=== PATIENT | male | born 1935 | race Caucasian/White ===

== ENCOUNTER 2019-05-03 09:19 | Inpatient (IN) | payer OTHER ==
[2019-04-25 14:22] VITALS: BMI 28.1
--- NOTE | 2019-05-03 08:05 | HP ---
Satellite [facility] - Chief Complaint Chief Complaint: right knee pain - Past Medical History Allergies/Adverse Reactions: Allergies Allergy/AdvReac Type Severity Reaction Status Date / Time No Known Allergies Allergy Verified 04/25/19 13:47 - Current Medications Current Medications: Home Medications Medication Instructions Recorded Amlodipine Besylate 10 mg PO DAILY 04/25/19 Aspirin [ASA -] 81 mg PO DAILY 04/25/19 Atorvastatin Ca [Lipitor] 20 mg PO HS 04/25/19 Clopidogrel Bisulfate [Clopidogrel] 75 mg PO DAILY 04/25/19 Levocetirizine Dihydrochloride 5 mg PO DAILY 04/25/19 [Xyzal] Metoprolol Succinate [Toprol Xl] 25 mg PO DAILY 04/25/19 Multivitamins [Tab-A-Vit -] 1 tab PO DAILY 04/25/19 Tamsulosin HCl 0.4 mg PO HS 04/25/19 Satellite Physical Exam - Physical Examination General Appearance: Well Nourished, Well Developed, Alert & Oriented x3, Severe Distress Lung: Normal air movement Extremities: Other (right knee- + swelling, + ttp, decr rom, nvi, xrays show grade 4 tricompartmental djd) Neurological: Intact, Alert, Oriented Satellite Impression/Plan - Impression/Plan Impression: right knee djd Operative Procedure: right edwin tkr Date to be Performed: 05/03/19
[2019-05-03] MEDS ORDERED: MIDAZOLAM HCL 2 MG/2 ML SINGLE DOSE VIAL ONE ×2 (09:42→10:35)
[2019-05-03] MEDS ORDERED: BUPIVACAINE LIPOSOME/PF (EXPAREL) 266 MG/20 ML VIAL ONE (09:42)
[2019-05-03] MEDS ORDERED: SODIUM CHLORIDE 0.9% P/F 10 ML VIAL IJ ONE ×2 (09:42→11:42)
[2019-05-03] MEDS ORDERED: CELECOXIB 200 MG CAPSULE PO ONE (09:43)
[2019-05-03] MEDS ORDERED: CEFAZOLIN 3 GM in DEXTROSE 5%-WATER - 100 ML IVPB ONE (09:43)
[2019-05-03] MEDS ORDERED: TRANEXAMIC ACID 1000 MG/10 ML VIAL IVPUSH ONE (09:43)
[2019-05-03] MEDS ORDERED: ceFAZolin SODIUM 1 GM VIAL ONE ×2 (10:47→11:42)
[2019-05-03] MEDS ORDERED: VANCOMYCIN 1,000 MG VIAL (RESTRICTED TO ID ONLY) ONE (10:47)
[2019-05-03] MEDS ORDERED: ROCURONIUM BROMIDE 50 MG/5 ML SYRINGE ONE (11:04)
[2019-05-03] MEDS ORDERED: ONDANSETRON 4 MG/2 ML VIAL IVPUSH PRN (11:34)
[2019-05-03] MEDS ORDERED: MAG HYDROX/AL HYDROX/SIMETH 30 ML UNIT-DOSE CUP PO PRN (11:34)
[2019-05-03] MEDS ORDERED: MAGNESIUM HYDROX 2400MG/30ML ORAL SUSPENSION 30 ML CUP PO PRN (11:34)
[2019-05-03] MEDS ORDERED: LIDOCAINE HCL/PF 2% SDV 5ML VIAL ONE (11:42)
[2019-05-03] MEDS ORDERED: DEXAMETHASONE SOD PHOSPHATE 4 MG/1 ML VIAL ONE (11:42)
[2019-05-03] MEDS ORDERED: LACTATED RINGERS SOLUTION 1,000 ML IV SCH (11:45)
[2019-05-03] MEDS ORDERED: NEOSTIGMINE METHYLSULFATE 0.5 MG/ML - 10 ML MDV ONE (12:41)
[2019-05-03] MEDS ORDERED: VANCOMYCIN 1,000 MG VIAL (RESTRICTED TO ID ONLY) IVPB ONE (12:41)
[2019-05-03] MEDS ORDERED: GLYCOPYRROLATE 0.2 MG/1 ML VIAL ONE (12:56)
--- NOTE | 2019-05-03 13:20 | OP ---
Operative Note - Note: Operative Date: 05/03/19 (jenny) Pre-Operative Diagnosis: right knee djd Operation: right edwin tkr Post-Operative Diagnosis: Same as Pre-op Surgeon: Felix Matthews Print Support Specialist: Ag Crespo Anesthesia: General, Local Specimens Removed: bone fragments Estimated Blood Loss (mls): 200
[2019-05-03] MEDS ORDERED: ONDANSETRON 4 MG/2 ML VIAL ONE (14:06)
[2019-05-03] MEDS ORDERED: ACETAMINOPHEN 325 MG TABLET (FP) ONE (14:06)
--- NOTE | 2019-05-03 14:11 | SPEC ---
DATE OF OPERATION: 05/03/2019 PREOPERATIVE DIAGNOSIS: Degenerative joint disease, right knee. POSTOPERATIVE DIAGNOSIS: Degenerative joint disease, right knee. PROCEDURE: Right total knee replacement with robotic-assisted navigation (Makoplasty). SURGICAL ATTENDING: Felix Matthews M.D. NEWSPAPER WRITER: Cici Lozada ANESTHESIA: Regional and general. CLOSURE: A cemented Triathlon knee system with a 6 tibia, 11 polyethylene, 38 patella, number 1 Vicryl fascia, 0 and 2-0 subcutaneous, 3-0 Monocryl subcuticular with skin glue, 4-0 undyed Vicryl for pin sites. ESTIMATED BLOOD LOSS: Less than 100 mL. COMPLICATIONS: None. CONDITION: To recovery room in stable condition. DESCRIPTION OF OPERATIVE PROCEDURE: Patient was taken to the operating room on May 03, 2019. Regional and general anesthesia was administered by the anesthesiologist. IV Kefzol and TXA were administered by the anesthesiologist. Well-padded pneumatic tourniquet was placed on the proximal thigh. The right lower extremity was prepped and draped in the usual sterile fashion. The leg was exsanguinated with an Esmarch bandage and tourniquet was inflated to 275 mmHg. A 12 to 15-cm longitudinal midline incision was incised while centered over the patella. The dissection was carried down to the level of the extensor mechanism with sufficient flaps made to adequately perform the procedure. A medial parapatellar arthrotomy was then performed. We made a cuff of tissue on the patella for later closure. The patella was inverted, the knee was flexed up. The fat pad was excised. The subperiosteal dissection was on the anteromedial proximal tibia around towards the direction of the MCL. The ACL and the PCL were transected and debrided. The meniscal remnants of the medial and lateral meniscus were debrided and removed. This allowed the knee to be able to "be brought forward." The checkpoints were malleted into the tibia and into the femur. Two threaded pins were drilled anteroposteriorly proximal to the knee through the previous incision, through the anterior cortex, then just engaging the posterior cortex. To these pins was assembled the femoral navigation array. One handbreadth below the tibial tubercle, 2 stab incisions were used to drill 2 threaded pins in parallel fashion into the tibia, again through the anterior cortex and just engaging the posterior cortex. To these pins was fastened the tibial arrays. The knee was then registered with the navigation device with center of rotation of the hip, medial and lateral malleoli, both checkpoints, and multiple points on both the femur and the tibia to ensure excellent registration. The navigation device was directed off the "top of the bubbles" on both the femur and the tibia. The navigation passed within less than 0.5 mm to plan. The knee was then thoroughly inspected to remove all osteophytes both medially, laterally, and on the femur and the tibia, and whatever osteophytes were available for dissection. The knee was then taken to extension and to flexion, and stressed in both varus and valgus to assess flexion gaps. The virtual position of the components on the navigation device were then manipulated to optimize the position and to ensure equal gaps in both flexion and extension, and both medially and laterally. The robot was then brought into the field and was registered. The cuts were then made both on the femur and on the tibia as to plan. All osteophytes posteriorly were then removed as well. The gaps were then measured again in flexion and extension to be equal in both flexion and extension and medial and laterally. The femoral notch was then made, as we were doing a posterior stabilizing component, with the appropriate sized box. Trial reduction of the femur achieved excellent [id number] fit. A tibial baseplate of appropriate polyethylene thickness was "floated in the knee." It was ensured to be in the excellent position by navigation devices and was pinned in place. The knee was taken through a range of motion and found to have excellent stability throughout flexion and extension. The patella was calibrated for thickness and osteotomized down to the appropriate level. The appropriate lollipop was used to drill the lug holes in the patella and the trial button was applied. The knee was taken through a range of motion and found to have excellent tracking of the patella and patella from full extension to full flexion. Trial components were removed, the keel was punched and drilled, and a sclerotic bone on the tibia was drilled to help with cement interdigitation. The knee was thoroughly irrigated with the pulse antibiotic title examiner. The real components were then cemented in using monitored arrangement cement techniques with antibiotic cement and pressurization and extension. After the cement was hardened, the knee was thoroughly inspected to remove any extra cement. The real polyethylene component was then clipped into place. Range of motion, stability, and tracking were as described earlier. The checkpoints and the pins were removed. The knee was thoroughly irrigated with antibiotic irrigation. Vancomycin powder was placed into the knee for antibiotic prophylaxis. The medial parapatellar arthrotomy was then closed using number 1 Vicryl interrupted suture. After closure of the deep layer, the knee was taken through a range of motion and found to have excellent stability of the patella with no dislocation and no undue tension on the repair. The subcutaneous was pulse antibiotic irrigated and was then closed with 2-0 Vicryl, 3-0 Monocryl subcuticular with the skin glue for the skin. The distal tibial pin site was irrigated thoroughly as well and then closed with 4-0 undyed Vicryl. A sterile Aquacel dressing was applied, followed by a Mei dressing. Tourniquet was deflated. Total tourniquet time was approximately 75 minutes. No complications. Patient was awakened from anesthesia and transferred to recovery room in stable condition. Postoperative x-rays revealed excellent position of the components. [place] [id number]
[2019-05-03] MEDS ORDERED: traMADol HCL 50 MG TABLET PO PRN (14:18)
[2019-05-03] MEDS ORDERED: oxyCODONE HCL 5 MG TABLET PO PRN (14:18)
[2019-05-03] MEDS: ACETAMINOPHEN 325 MG TABLET (FP) PO SCH ×2 (14:29→19:59)
[2019-05-03] MEDS: oxyCODONE HCL 5 MG TABLET PO PRN (15:00)
[2019-05-03] MEDS: CEFAZOLIN 2 GM/D5W 2 GM/50 ML ML IVPB SCH (20:01)
[2019-05-03] MEDS: FAMOTIDINE 20 MG TABLET PO SCH (21:13)
[2019-05-03] MEDS: TAMSULOSIN HCL 0.4 MG CAP PO SCH (21:13)
[2019-05-03] MEDS: ATORVASTATIN CA 20 MG TABLET (FP) PO SCH (21:14)
[2019-05-03] MEDS: SENNOSIDES/DOCUSATE COMBO (SENNA PLUS) TABLET (UD) PO SCH (21:14)
[2019-05-04] MEDS: ACETAMINOPHEN 325 MG TABLET (FP) PO SCH ×4 (03:03→21:16)
[2019-05-04] MEDS: CEFAZOLIN 2 GM/D5W 2 GM/50 ML ML IVPB SCH (03:26)
[2019-05-04 07:44] LABS: HEMATOCRIT 33.9 % (35.4-49); HEMOGLOBIN 11.7 GM/dl (11.7-16.9); MCHC 34.5 g/dl (32.0-35.9); MEAN CELL VOLUME 89.7 fl (80-96); MEAN PLT VOLUME 7.9 fl (7.5-11.1); PLATELET COUNT 217 K/MM3 (134-434); RBC 3.78 M/mm3 (4.00-5.60); RDW 12.7 % (11.9-15.9); WHITE BLOOD COUNT 10.6 K/mm3 (4.0-10.8)
[2019-05-04] MEDS: CLOPIDOGREL BISULFATE 75 MG TABLET (FP) PO SCH (09:00)
--- NOTE | 2019-05-04 09:20 | PN ---
Progress Note (short form) - Note Progress Note: Ortho Pt seen and examined s/p right edwin tkr pod #1 Selected Entries 05/04/19 06:00 Temperature 99.1 F Pulse Rate 79 Respiratory 19 Rate Blood Pressure 176/57 H Laboratory Tests 05/04/19 07:10 WBC 10.6 Hgb 11.7 Hct 33.9 L Plt Count 217 dressing c/d/i, calf soft, nt rom 0-40, nvi a/p PT dvt ppx pain control d/c home tomorrow if stable
[2019-05-04] MEDS: FAMOTIDINE 20 MG TABLET PO SCH ×2 (09:30→21:16)
[2019-05-04] MEDS: LORATADINE 10 MG TABLET PO SCH (09:30)
[2019-05-04] MEDS: amLODIPine BESYLATE 10 MG TABLET (FP) PO SCH (09:30)
[2019-05-04] MEDS: metoPROLOL SUCCINATE 25 MG TAB.SR.24H (FP) PO SCH (09:30)
[2019-05-04] MEDS: MULTIVITAMINS (DAILY MVI) TABLET (FP) PO SCH (09:30)
[2019-05-04] MEDS: ASPIRIN 81 MG CHEWABLE TABLETS PO SCH (09:30)
[2019-05-04] MEDS: SENNOSIDES/DOCUSATE COMBO (SENNA PLUS) TABLET (UD) PO SCH ×2 (09:30→21:17)
[2019-05-04] MEDS ORDERED: MULTIVITAMINS (DAILY MVI) TABLET (FP) PO SCH (10:00)
[2019-05-04] MEDS ORDERED: LEVOCETIRIZINE DIHYDROCHLORIDE 5 MG PO SCH (10:00)
--- NOTE | 2019-05-04 10:16 | PN ---
Progress Note, Physician Chief Complaint: C/O WEAKNESS AND DIZZINESS S/P RIGHT TKR - Current Medication List Current Medications: Active Medications Acetaminophen (Tylenol -) 650 mg PO Q6H [facility] Stop: 05/06/19 14:29 Last Admin: 05/04/19 03:03 Dose: 650 mg Al Hydroxide/Mg Hydroxide (Mylanta Oral Suspension -) 30 ml PO Q4H PRN PRN Reason: DYSPEPSIA Amlodipine Besylate (Norvasc -) 10 mg PO DAILY [facility] Aspirin (Asa -) 81 mg PO DAILY [facility] Atorvastatin Calcium (Lipitor -) 20 mg PO HS [facility] Last Admin: 05/03/19 21:14 Dose: 20 mg Clopidogrel Bisulfate (Plavix -) 75 mg PO DAILY@0800 [facility] Famotidine (Pepcid -) 20 mg PO BID [facility] Last Admin: 05/03/19 21:13 Dose: 20 mg Loratadine (Claritin -) 10 mg PO DAILY [facility] Magnesium Hydroxide (Milk Of Magnesia -) 30 ml PO PRN PRN PRN Reason: CONSTIPATION Metoprolol Succinate (Toprol Xl -) 25 mg PO DAILY [facility] Multivitamins/Minerals/Vitamin C (Tab-A-Vit -) 1 tab PO DAILY [facility] Ondansetron HCl (Zofran Injection) 4 mg IVPUSH Q6H PRN PRN Reason: NAUSEA Last Admin: 05/03/19 14:11 Dose: 4 mg Oxycodone HCl (Roxicodone -) 5 mg PO Q3H PRN PRN Reason: PAIN LEVEL 4 - 6 Last Admin: 05/04/19 00:55 Dose: 5 mg Oxycodone HCl (Roxicodone -) 10 mg PO Q3H PRN PRN Reason: PAIN LEVEL 7 - 10 Last Admin: 05/03/19 15:00 Dose: 10 mg Senna/Docusate Sodium (Pericolace -) 2 tablet PO BID [facility] Last Admin: 05/03/19 21:14 Dose: 2 tablet Tamsulosin HCl (Flomax -) 0.4 mg PO [facility] Last Admin: 05/03/19 21:13 Dose: 0.4 mg Tramadol HCl (Ultram -) 50 mg PO Q3H PRN PRN Reason: PAIN LEVEL 1 - 3 - Objective Vital Signs: Vital Signs Temperature 99.1 F 05/04/19 06:00 Pulse Rate 79 05/04/19 06:00 Respiratory Rate 19 05/04/19 06:00 Blood Pressure 176/57 H 05/04/19 06:00 O2 Sat by Pulse Oximetry (%) 96 05/04/19 06:29 Constitutional: Yes: Mild Distress Cardiovascular: Yes: Regular Rate and Rhythm Respiratory: Yes: WNL Gastrointestinal: Yes: Soft, Abdomen, Obese Genitourinary: Yes: WNL Musculoskeletal: Yes: Muscle Weakness Wound/Incision: Yes: Dressing Dry and Intact Neurological: Yes: Other Labs: CBC, BMP 05/04/19 07:10 Problem List - Problems (1) S/P TKR (total knee replacement) Code(s): Z96.659 - PRESENCE OF UNSPECIFIED ARTIFICIAL KNEE JOINT (2) CAD (coronary artery disease) Code(s): I25.10 - ATHSCL HEART DISEASE OF [place] CORONARY ARTERY W/O ANG PCTRS (3) HTN (hypertension) Code(s): I10 - ESSENTIAL (PRIMARY) HYPERTENSION (4) Lipidemia Code(s): E78.5 - HYPERLIPIDEMIA, UNSPECIFIED (5) Diabetes Code(s): E11.9 - TYPE 2 DIABETES MELLITUS WITHOUT COMPLICATIONS (6) Dizziness Code(s): R42 - DIZZINESS AND GIDDINESS Assessment/Plan DIZZINES LIKELY SECONDARY TO PAIN MED NARCOTICS HOWEVER DUE TO CARDIAC HISTORY WILL CHECK EKG/CARDIAC ENZYMES STAT IVF GENTLE MONITOR LABS OOB WITH ASSIST
[2019-05-04] MEDS ORDERED: SODIUM CHLORIDE 1,000 ML IV SCH (10:30)
[2019-05-04 10:58] LABS: ALBUMIN 3.6 g/dl (3.4-5.0); BILIRUBIN,TOTAL 0.7 mg/dl (0.2-1); CALCIUM 8.5 mg/dl (8.5-10); CREATININE 0.8 mg/dl (0.55-1.3); MAGNESIUM 1.9 mg/dL (1.8-2.4); POTASSIUM 4.3 mmol/L (3.5-5.1)
--- NOTE | 2019-05-04 11:40 | EKG ---
Test Reason : Blood Pressure : / mmHG Vent. Rate : 070 BPM Atrial Rate : 070 BPM P-R Int : 198 ms QRS Dur : 096 ms QT Int : 398 ms P-R-T Axes : 073 -04 042 degrees QTc Int : 429 ms SINUS RHYTHM WITH PREMATURE ATRIAL COMPLEXES CANNOT RULE OUT ANTERIOR INFARCT , AGE UNDETERMINED ABNORMAL ECG NO PREVIOUS ECGS AVAILABLE Confirmed by Chetan Hoyt MD ([id number]) on 05/04/2019 11:39:53 AM Referred By: Felix Matthews Confirmed By:Chetan Hoyt MD
--- NOTE | 2019-05-04 14:27 | PN ---
Progress Note (short form) - Note Progress Note: 83 yo M s/p TKR. followed by medicine today for dizziness. no anesthetic comps. neg med w/u at this time. mostl likely narcotic related. defer to med for further Tx.
[2019-05-04] MEDS: oxyCODONE HCL 5 MG TABLET PO PRN (15:24)
[2019-05-04] MEDS: TAMSULOSIN HCL 0.4 MG CAP PO SCH (21:16)
[2019-05-04] MEDS: ATORVASTATIN CA 20 MG TABLET (FP) PO SCH (21:17)
[2019-05-05] MEDS: ACETAMINOPHEN 325 MG TABLET (FP) PO SCH ×4 (02:20→21:22)
[2019-05-05 07:36] LABS: HEMATOCRIT 34.5 % (35.4-49); HEMOGLOBIN 11.6 GM/dl (11.7-16.9); MCH 30.1 pg (25.7-33.7); MCHC 33.4 g/dl (32.0-35.9); MEAN PLT VOLUME 7.9 fl (7.5-11.1); PLATELET COUNT 245 K/MM3 (134-434); RBC 3.84 M/mm3 (4.00-5.60); RDW 12.5 % (11.9-15.9); WHITE BLOOD COUNT 12.5 K/mm3 (4.0-10.8)
--- NOTE | 2019-05-05 08:29 | PN ---
Progress Note, Physician Chief Complaint: AWAKE ALERT FEELING BETTER POD 2 RIGHT TKR - Current Medication List Current Medications: Active Medications Acetaminophen (Tylenol -) 650 mg PO Q6H [facility] Stop: 05/06/19 14:29 Last Admin: 05/05/19 02:20 Dose: 650 mg Al Hydroxide/Mg Hydroxide (Mylanta Oral Suspension -) 30 ml PO Q4H PRN PRN Reason: DYSPEPSIA Amlodipine Besylate (Norvasc -) 10 mg PO DAILY [facility] Last Admin: 05/04/19 09:30 Dose: 10 mg Aspirin (Asa -) 81 mg PO DAILY [facility] Last Admin: 05/04/19 09:30 Dose: 81 mg Atorvastatin Calcium (Lipitor -) 20 mg PO HS [facility] Last Admin: 05/04/19 21:17 Dose: 20 mg Clopidogrel Bisulfate (Plavix -) 75 mg PO DAILY@0800 [facility] Last Admin: 05/04/19 09:00 Dose: 75 mg Famotidine (Pepcid -) 20 mg PO BID [facility] Last Admin: 05/04/19 21:16 Dose: 20 mg Sodium Chloride (Normal Saline -) 1,000 mls @ 83 mls/hr IV ASDIR [facility] Last Admin: 05/04/19 10:30 Dose: 83 mls/hr Loratadine (Claritin -) 10 mg PO DAILY [facility] Last Admin: 05/04/19 09:30 Dose: 10 mg Magnesium Hydroxide (Milk Of Magnesia -) 30 ml PO PRN PRN PRN Reason: CONSTIPATION Last Admin: 05/04/19 15:24 Dose: 30 ml Metoprolol Succinate (Toprol Xl -) 25 mg PO DAILY [facility] Last Admin: 05/04/19 09:30 Dose: 25 mg Multivitamins/Minerals/Vitamin C (Tab-A-Vit -) 1 tab PO DAILY [facility] Last Admin: 05/04/19 09:30 Dose: 1 tab Ondansetron HCl (Zofran Injection) 4 mg IVPUSH Q6H PRN PRN Reason: NAUSEA Last Admin: 05/03/19 14:11 Dose: 4 mg Oxycodone HCl (Roxicodone -) 5 mg PO Q3H PRN PRN Reason: PAIN LEVEL 4 - 6 Last Admin: 05/04/19 00:55 Dose: 5 mg Oxycodone HCl (Roxicodone -) 10 mg PO Q3H PRN PRN Reason: PAIN LEVEL 7 - 10 Last Admin: 05/04/19 15:24 Dose: 10 mg Senna/Docusate Sodium (Pericolace -) 2 tablet PO BID [facility] Last Admin: 05/04/19 21:17 Dose: 2 tablet Tamsulosin HCl (Flomax -) 0.4 mg PO HS [facility] Last Admin: 05/04/19 21:16 Dose: 0.4 mg Tramadol HCl (Ultram -) 50 mg PO Q3H PRN PRN Reason: PAIN LEVEL 1 - 3 - Objective Vital Signs: Vital Signs Temperature 98.3 F 05/05/19 06:00 Pulse Rate 72 05/05/19 06:00 Respiratory Rate 18 05/05/19 06:00 Blood Pressure 154/58 L 05/05/19 06:00 O2 Sat by Pulse Oximetry (%) 92 L 05/05/19 06:45 Constitutional: Yes: Mild Distress Cardiovascular: Yes: Regular Rate and Rhythm Respiratory: Yes: WNL Gastrointestinal: Yes: Soft, Abdomen, Obese Genitourinary: Yes: WNL Musculoskeletal: Yes: Other ...Motor Strength: RLE Labs: CBC, BMP 05/05/19 06:36 05/04/19 10:41 Problem List - Problems (1) S/P TKR (total knee replacement) Code(s): Z96.659 - PRESENCE OF UNSPECIFIED ARTIFICIAL KNEE JOINT (2) CAD (coronary artery disease) Code(s): I25.10 - ATHSCL HEART DISEASE OF [place] CORONARY ARTERY W/O ANG PCTRS (3) HTN (hypertension) Code(s): I10 - ESSENTIAL (PRIMARY) HYPERTENSION (4) Lipidemia Code(s): E78.5 - HYPERLIPIDEMIA, UNSPECIFIED (5) Diabetes Code(s): E11.9 - TYPE 2 DIABETES MELLITUS WITHOUT COMPLICATIONS (6) Dizziness Code(s): R42 - DIZZINESS AND GIDDINESS Assessment/Plan LABS AND EKG REVIEWED NO ACUTE CHANGES WILL F/U OUTPATIENT WITH HIS PMD MEDICALLY CLEARED FOR DISCHARGE
--- NOTE | 2019-05-05 08:34 | PN ---
Progress Note (short form) - Note Progress Note: Ortho Pt seen and examined s/p right edwin tkr pod #2 Selected Entries 05/05/19 06:00 Temperature 98.3 F Pulse Rate 72 Respiratory 18 Rate Blood Pressure 154/58 L Laboratory Tests 05/05/19 06:36 WBC 12.5 H Hgb 11.6 L Hct 34.5 L Plt Count 245 dressing c/d/i, calf soft, nt rom 0-60, nvi a/p PT dvt ppx pain control d/c home today f/u in 1 week
--- NOTE | 2019-05-05 08:36 | DS ---
Physical Examination Vital Signs: Vital Signs Temperature 98.3 F 05/05/19 06:00 Pulse Rate 72 05/05/19 06:00 Respiratory Rate 18 05/05/19 06:00 Blood Pressure 154/58 L 05/05/19 06:00 O2 Sat by Pulse Oximetry (%) 92 L 05/05/19 06:45 Labs: CBC, BMP 05/05/19 06:36 05/04/19 10:41 Discharge Summary Problems reviewed: Yes Reason For Visit: OSTEOARTHRITIS Current Active Problems CAD (coronary artery disease) (Acute) Diabetes (Acute) Dizziness (Acute) HTN (hypertension) (Acute) Lipidemia (Acute) S/P TKR (total knee replacement) (Acute) Procedures: Principal: right tkr Hospital Course: admitted for elective right edwin tkr, post-op per protocol, stable for d/c Condition: Good - Instructions Diet, Activity, Other Instructions: Post-op Instructions-Total Knee Replacement Call the office for a follow-up appointment in 1 week - [phone] Aspirin 325mg daily for 6 weeks. Pain medication was sent into your pharmacy. Apply Graduated Compression Stockings (TEDs) to both lower extremities- remove daily for hygiene ONLY Apply Sequential Compression Device (SCDs) to both Lower extremities remove for PT and hygiene ONLY Apply cold packs to affected area for 15 minutes every 2 hours. Physical Therapist will come to your home for the first 5 days. You will be set up with outpatient PT at your first post-operative visit. Patient may ambulate as tolerated-encourage self care (at least every 2-3 hours while awake) with walker or cane Maintain Aquacel (waterproof) dressing to operative wound (will be removed by surgeon at first office visit) Shower with Aquacel dressing in place-if Aquacel integrity compromised, remove and apply dry sterile dressing and notify Orthopedist. DO NOT SHOWER unless Orthopedists approves without Aquacel dressing CONTACT THE OFFICE FOR ANY CHANGE IN YOUR CONDITION (for example-fever greater than 102 degrees, excessive bleeding from operative site, purulent drainage, severe swelling or pain) GO TO THE EMERGENCY ROOM IF THERE IS A MEDICAL EMERGENCY Knee Precautions: * Keep a rolled towel under affected heel while in bed or chair (to keep knee in extension) * Keep affected leg elevated except during mealtimes * DO NOT PLACE PILLOW UNDER AFFECTED KNEE * If you have any questions, please do not hesitate to call the office - [phone]. Referrals: Felix Matthews MD [Staff Physician] - Disposition: VNS/HOME HEALTH CARE - Home Medications Comprehensive Discharge Medication List: Ambulatory Orders Amlodipine Besylate 10 mg PO DAILY 04/25/19 Aspirin [ASA -] 81 mg PO DAILY 04/25/19 Atorvastatin Ca [Lipitor] 20 mg PO HS 04/25/19 Clopidogrel Bisulfate [Clopidogrel] 75 mg PO DAILY 04/25/19 Levocetirizine Dihydrochloride [Xyzal] 5 mg PO DAILY 04/25/19 Metoprolol Succinate [Toprol Xl] 25 mg PO DAILY 04/25/19 Multivitamins [Tab-A-Vit -] 1 tab PO DAILY 04/25/19 Tamsulosin HCl 0.4 mg PO HS 04/25/19
[2019-05-05] MEDS: CLOPIDOGREL BISULFATE 75 MG TABLET (FP) PO SCH (09:53)
[2019-05-05] MEDS: ASPIRIN 81 MG CHEWABLE TABLETS PO SCH (09:55)
[2019-05-05] MEDS: amLODIPine BESYLATE 10 MG TABLET (FP) PO SCH (09:56)
[2019-05-05] MEDS: LORATADINE 10 MG TABLET PO SCH (09:56)
[2019-05-05] MEDS: SENNOSIDES/DOCUSATE COMBO (SENNA PLUS) TABLET (UD) PO SCH ×2 (09:56→21:21)
[2019-05-05] MEDS: FAMOTIDINE 20 MG TABLET PO SCH ×2 (09:56→21:22)
[2019-05-05] MEDS: MULTIVITAMINS (DAILY MVI) TABLET (FP) PO SCH (09:57)
[2019-05-05] MEDS: metoPROLOL SUCCINATE 25 MG TAB.SR.24H (FP) PO SCH (11:57)
--- NOTE | 2019-05-05 16:03 | PATH ---
Surgical Pathology Report Patient Name: WOLFGANG ORONA Med. Rec. #: [id number] /Age/Gender: 1935 (Age: 83) / M Account: [id number] Location: [facility] Taken: 05/03/2019 Received: 05/03/2019 Reported: 05/05/2019 Physicians: Felix Matthews M.D. Specimen(s) Received RIGHT KNEE BONES Clinical History Right knee osteoarthritis Final Diagnosis BONE, KNEE, RIGHT, TOTAL KNEE REPLACEMENT MAKOPLASTY: BONE WITH DEGENERATIVE JOINT DISEASE AND REACTIVE SYNOVIUM. Electronically Signed Jeannette Moseley M.D. Gross Description Received in formalin labeled "right knee bones," is a 12.0 x 10.0 x 2.3 cm aggregate of multiple martel-yellow, irregular portions of bone and soft tissue. The tibial plateau measures 7.5 x 5.1 x 1.2 cm. There are multiple areas of eburnation present, measuring up to 2.5 cm in greatest dimension. The remaining articular surfaces are martel-yellow and diffusely granular. The underlying trabecular bone is yellow and hard. Director Of Food And Nutrition sections are submitted in one cassette, following decalcification. 05/04/2019 [facility]05/04/2019
[2019-05-05] MEDS: TAMSULOSIN HCL 0.4 MG CAP PO SCH (21:22)
[2019-05-05] MEDS: ATORVASTATIN CA 20 MG TABLET (FP) PO SCH (21:22)
[2019-05-06] MEDS: ACETAMINOPHEN 325 MG TABLET (FP) PO SCH ×2 (04:39→08:44)
[2019-05-06 06:18] VITALS: BP 150/51; PULSE 81; TEMP 98.1
[2019-05-06] MEDS: CLOPIDOGREL BISULFATE 75 MG TABLET (FP) PO SCH (08:44)
[2019-05-06] MEDS: SENNOSIDES/DOCUSATE COMBO (SENNA PLUS) TABLET (UD) PO SCH (09:28)
[2019-05-06] MEDS: LORATADINE 10 MG TABLET PO SCH (09:28)
--- NOTE | 2019-05-06 09:28 | PN ---
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
[2019-05-06] MEDS: FAMOTIDINE 20 MG TABLET PO SCH (09:29)
[2019-05-06] MEDS: MULTIVITAMINS (DAILY MVI) TABLET (FP) PO SCH (09:29)
[2019-05-06] MEDS: metoPROLOL SUCCINATE 25 MG TAB.SR.24H (FP) PO SCH (09:29)
[2019-05-06] MEDS: ASPIRIN 81 MG CHEWABLE TABLETS PO SCH (09:29)
[2019-05-06] MEDS: amLODIPine BESYLATE 10 MG TABLET (FP) PO SCH (09:29)
== END 2019-05-06 14:00 | DRG 470 ==
LOC: FM/S 09:19
PROVIDERS: ADMIT Orthopaedic Surgery; ATTEND Orthopaedic Surgery
PROC: 8E0Y0CZ Robotic Assisted Procedure of Lower Extremity, Open Approach (ICD-10-PCS; 2019-05-03)
PROC: 0SRC0J9 Replacement of Right Knee Joint with Synthetic Substitute, Cemented, Open Approach (ICD-10-PCS; principal; 2019-05-03 11:50)
DX: M17.11 Unilateral primary osteoarthritis, right knee (principal); I25.10 Atherosclerotic heart disease of native coronary artery without angina pectoris; I10 Essential (primary) hypertension; E78.5 Hyperlipidemia, unspecified; E11.9 Type 2 diabetes mellitus without complications; R42 Dizziness and giddiness
CPT/HCPCS: 36415; 73560-TC-RT-FY; 80053; 82550; 83735; 84484; 85027; 93005; 94760; 97116-GP; 97163-GP; J7030